=== PATIENT | female | born 1940 | race Caucasian/White ===

== ENCOUNTER → 2024-04-20 | Outpatient (CLI) | payer MEDICARE ==
--- NOTE | 2024-04-20 14:30 | CT ---
EXAMINATION TYPE: CT abdomen pelvis wo con DATE OF EXAM: 04/20/2024 COMPARISON: None HISTORY: abd pain, rt nephrectomy; left hydronephrosis per US CT DLP: 245.30 mGycm Automated exposure control for dose reduction was used. TECHNIQUE: Helical acquisition of images was performed from the lung bases through the pelvis. FINDINGS: The left lung base is considerably smaller than the right lung base and there are mild interstitial d ensities and bronchiectasis. Gallbladder is normal and there is no gallstone, wall thickening, pericholecystic fluid or distention . There is no biliary ductal dilatation. There is no organomegaly of the liver, pancreas, spleen or adrenal glands. There is a right nephrectomy. There is a 4 mm nonobstructing left renal calcification The caliber of the abdominal aorta is normal and there is no retroperitoneal adenopathy or hemorrhage . The bowel loops are normal in caliber is no evidence of obstruction. No inflammatory changes are iden tified in the mesentery and there is no free intraperitoneal air or fluid. There is no pelvic mass, free fluid, abscess or adenopathy. There is a Morrison catheter in urinary blad tanya. There are calcifications within the uterus consistent with fibroid uterus. The osseous structures and soft tissues are unremarkable. There is open reduction internal fixation o f a right femur fracture. IMPRESSION: 1. 4 mm nonobstructing left renal calculus 2. Right nephrectomy 3. Chronic changes in the left lung base.
== END | disposition home or self-care (01) ==
LOC: RADCTMAIN 12:22
PROVIDERS: ATTEND Internal Medicine Geriatric Medicine
DX: N13.39 Other hydronephrosis (principal); N13.2 Hydronephrosis with renal and ureteral calculous obstruction; Z90.5 Acquired absence of kidney
CPT/HCPCS: 74176